=== PATIENT | male | born 1995 | race Caucasian/White ===

== ENCOUNTER 2018-12-21 09:42 | Emergency (ER) | payer OTHER, SELFPAY ==
[2018-12-21 09:43] VITALS: BP 158/93; PULSE 74; RESP 18; TEMP 36.3; O2SAT 99; BMI 34.2
--- NOTE | 2018-12-21 09:51 | RAD_ITS ---
STUDY: X-RAY - LUMBAR SPINE REASON FOR EXAM: Male, 23 years old. Pain. TECHNIQUE: 3 view(s) of the lumbar spine were obtained. COMPARISON: None FINDINGS: Normal lumbar lordosis. There is a levoscoliosis of the lumbar spine. There is a normal alignment of the vertebrae. Normal vertebral bodies and endplates. Normal disc space heights. The soft tissue structures are unremarkable. RAD/Lumbar Spine 2 or 3 Views IMPRESSION: Levoscoliosis. Electronically Signed: Juancarlos Conte, at 11:19 EDT , Service support ,
--- NOTE | 2018-12-21 09:54 | ED.DCSUM_ITS ---
- ER Visit Summary Date of Service: 12/21/18 Chief Complaint: Back pain History of Present Illness: The patient is a 23 M presents to the emergency department right-sided low back pain. The patient states he works building [employer]. He states they are getting ready to go to a job in [place]. He had to do a lot of lifting and twisting over the last week. He began to have increasing pain in his right low back. Over the weekend, the pain is worsened. He discusses a sharp, throbbing pain in his right low back into his buttock. He denies any weakness. Denies any change in gait. He denies any trauma. He had no difficulty with bowel or bladder. Physical Examination: Afebrile, vitals unremarkable. Well-appearing male no acute distress. Head is normocephalic, atraumatic. Pupil's equal round reactive, extraocular muscles intact. Neck supple. Heart regular rate and rhythm. Lungs clear, chest nontender. Abdomen soft, nontender, nondistended. No pulsatile mass. Patient has paraspinal tenderness in the lumbar area, but no bony tenderness. Straight leg raise is negative bilaterally. 2+ symmetric lower extremity pulses. 2+ reflexes. No clonus. No weakness of dorsiflexion, plantar flexion, or extensor hallucis longus bilaterally. Test Results: [] Emergency Department Course and Treatment: The patient's symptoms do seem most consistent with a radiculopathy. He is a burning pain in his right low back that travels into his right buttock. He has no weakness. His reflexes are normal. There is no clonus. I did obtain plain films which are unremarkable. The patient was treated with IM medications with improvement. I am going to continue him on oral medications and anti-inflammatories. I do feel that he is safe for outpatient therapy. He has no red flag symptoms. He is comfortable with this plan of care. Treatment Plan: [] Disposition: Discharge Impression: 1. Low back pain with radiculopathy This note was generated with [employer] dictation software. It may contain incorrect words, spelling, and punctuation that were not noted in review of the chart prior to signing ED Disposition - Plan for ED Patient: Instructions: ED Sciatica Prescriptions: Hydrocodone Bitart/Apap 5-325 [[place] 5MG-325MG] 1 tab PO Q6H PRN PRN 3 Days #10 tab PRN Reason: Pain MethylPREDNISolone DosePak [Medrol DosePak] 4 mg PO UD #1 box Cyclobenzaprine [Flexeril] 10 mg PO TID PRN #20 tab PRN Reason: Muscle Spasm Referrals: Monisha Ferrell MD [STAFF PHYSICIAN] -
[2018-12-21] MEDS: Orphenadrine 60 MG/2 ML Ampul IM (09:57)
[2018-12-21] MEDS: Ketorolac 60 MG/2 ML Vial IM (09:57)
[2018-12-21] MEDS: Morphine 4 MG/ML Syringe 8 MG IM (09:57)
== END 2018-12-21 11:40 | disposition home or self-care (01) ==
LOC: ED 10:32
PROVIDERS: Emergency Provider Emergency Medicine
DX: M54.16 Radiculopathy, lumbar region (principal); M54.5 Low back pain
CPT/HCPCS: 72100; 96372; 99282

== ENCOUNTER 2021-04-28 10:30 | Emergency (ER) | payer BC, SELFPAY ==
[2021-04-28 10:31] VITALS: BP 139/72; PULSE 88; RESP 16; TEMP 36; O2SAT 97; BMI 73.7
--- NOTE | 2021-04-28 10:43 | ED.VIS.LOWEX ---
HPI History of Present Illness HPI Narrative: Patient presents with right ankle pain. Yesterday he was walking along a trail. He slipped and rolled his right ankle. He was able to walk a mile and a half back to his car. He had a fair amount of swelling. The swelling and discomfort is better today but it still swollen and sore. He has mostly medial but some lateral ankle pain. He has no pain in his heel, posterior calf, knee or foot. He did not hit his head or lose consciousness. Weightbearing makes it worse. Rest makes it better. Chief Complaint: Lower Extremity Injury Informant: patient PFSH PFS no medical history (Patient denies any active medical history, or any current medications.) Home Medications NK 04/28/21 [History Last Taken Unknown] naproxen [Naprosyn] 500 mg PO BID PRN #20 tab 04/28/21 [Rx Last Taken Unknown] Allergy/AdvReac Type Severity Reaction Status Date / Time amoxicillin Allergy Unknown Verified 04/28/21 10:31 Surgical History (Updated 04/28/21 @ 10:59 by Ludy Cai) History of appendectomy Social History Smoking Status: Never smoker ROS ROS ED Cardiovascular Cardiovascular: Denies chest pain Respiratory/Chest Respiratory/Chest: Denies dyspnea Gastrointestinal Gastrointestinal: Denies nausea or vomiting Musculoskeletal Musculoskeletal: Reports other Details: See history of present illness. Integumentary Reports other Details: No break in the skin Neurologic Neurologic: Denies paresthesias or weakness Hematologic/Lymphatic Hematologic/Lymphatic: Denies easy bruising EXAM Physical Exam Const Vital Signs: 04/28/21 10:31 Temperature 96.8 F L Temperature Source Temporal Pulse Rate 88 Respiratory Rate 16 Blood Pressure 139/72 H Blood Pressure Mean 94 Pulse Ox 97 Oxygen Delivery Method Room Air Positive well nourished and well developed General Appearance ED: well developed HEENT normocephalic and atraumatic Neck full ROM Chest Wall inspection of chest normal and palpation of chest normal Resp normal respiratory effort and clear to auscultation bilaterally Cardio regular rate GI non-tender Palpation: soft Back/Spine no CVA tenderness Cervical Spine: Negative for cervical spine tenderness Thoracic Spine / Upper Back: Negative for thoracic spinal tenderness Lumbar Spine / Lower Back: Negative for lumbar spinal tenderness Extremity Extremity Narrative: Patient's right ankle does have some swelling a little bit more laterally than medially. He has some mild medial and slight lateral malleolar tenderness. No fifth metatarsal tenderness. No calcaneus tenderness. Achilles is intact to both palpation and Jin test. No more proximal tenderness. Neuro Sensorium / Orientation: alert Skin no wounds Lesions: no lesions Rashes: no rashes Trauma: Negative for abrasion or laceration MDM MDM MDM Narrative Medical decision making narrative: Patient's x-rays showed no sign of fractures. These were looked at by me and read by radiology. He will be given Naprosyn. I will give him an Aircast. He will follow up. We discussed reasons to return. Radiography Diagnostic Testing: Radiology Impression Ankle X-Ray 04/28/21 10:54 IMPRESSION: There is mild soft tissue edema about the ankle. No visualized fracture. Electronically Signed: Dominique Zeng MD at 11:20 EDT Tel , Service support , Discharge Plan Triage Chief Complaint: Lower Extremity Injury ED Provider: Ari Rivas Dx/Rx/DC Orders Clinical Impression: Injury of right ankle Instructions: ED Ankle Sprain (Adult) Prescriptions: New naproxen [Naprosyn] 500 mg tablet 500 mg PO BID PRN (Reason: pain) Qty: 20 RF: 0 No Action NK RF: 0 Primary Care Provider: Care Physician,No Primary Referrals: Benjamin Menon MD [STAFF PHYSICIAN] - 3-5 Days Care Physician,No Primary [Primary Care Provider] - Disposition Disposition: Home, Self Care
--- NOTE | 2021-04-28 10:54 | RAD_ITS ---
STUDY: X-RAY - RIGHT ANKLE REASON FOR EXAM: Male, 25 years old. Pain after trauma TECHNIQUE : 3 view(s) of the ankle. COMPARISON: None. FINDINGS: Normal visualized distal tibia and fibula. Normal medial and lateral malleoli. Normal tibiotalar articulation and ankle mortise. Normal visualized talus and calcaneus. The visualized subtalar, talonavicular, calcaneocuboid and tarsal articulations are normal. There is mild soft tissue edema. RAD/Ankle min 3 Views IMPRESSION: There is mild soft tissue edema about the ankle. No visualized fracture. Electronically Signed: Dominique Zeng MD at 11:20 EDT Tel , Service support ,
[2021-04-28 12:54] VITALS: PULSE 62; O2SAT 97
== END 2021-04-28 12:56 | disposition home or self-care (01) ==
PROVIDERS: Emergency Provider Emergency Medicine
DX: S99.911A Unspecified injury of right ankle, initial encounter (principal); X50.1XXA Overexertion from prolonged static or awkward postures, initial encounter; Y93.01 Activity, walking, marching and hiking; Z79.899 Other long term (current) drug therapy
CPT/HCPCS: 73610; 99283